=== PATIENT | male | born 1975 | race Caucasian/White ===

== ENCOUNTER 2017-12-25 09:22 | Emergency (ER) | payer MEDICAID, OTHER ==
[~2017-12-25] VITALS: Ht 188 cm; Wt 148.3 kg
[~2017-12-25 09:22] MED LIST: CEPH-572 PO
[2017-12-25] MEDS ORDERED: proparacaine 0.5% ophthalmic drops 15ml RIGHTEYE ONE (10:20)
[2017-12-25] MEDS ORDERED: benoxinate/fluorescein ophth drops 5ml bottle EACHEYE ONE (10:45)
[2017-12-25] MEDS ORDERED: HYDROcodone/acetaminophen 10/325mg tab PO ONE (11:05)
[2017-12-25] MEDS ORDERED: gentamicin ophthalmic ointment 1 APPLIC TUBE RIGHTEYE ONE (11:05)
[2017-12-25 11:24] VITALS: BP 148/97
== END 2017-12-25 11:26 | disposition home or self-care (01) ==
LOC: ER 09:22
DX: S05.01XA Injury of conjunctiva and corneal abrasion without foreign body, right eye, initial encounter (principal); G62.9 Polyneuropathy, unspecified; G89.29 Other chronic pain; F12.90 Cannabis use, unspecified, uncomplicated; F17.200 Nicotine dependence, unspecified, uncomplicated; Z88.0 Allergy status to penicillin; X58.XXXA Exposure to other specified factors, initial encounter; Y93.89 Activity, other specified; Y92.89 Other specified places as the place of occurrence of the external cause; Y99.8 Other external cause status
CPT/HCPCS: 99283

== ENCOUNTER 2020-02-02 16:58 | Emergency (ER) | payer MEDICAID ==
[~2020-02-02] VITALS: Ht 188 cm; Wt 159.0 kg
[2020-02-02] MEDS ORDERED: IBUP-1984 PO (18:15)
[2020-02-02] MEDS ORDERED: ORPH100T2 PO (18:15)
[2020-02-02] MEDS ORDERED: ketorolac tromethamine 15mg/ml inj. IM ONE (18:15)
[2020-02-02] MEDS ORDERED: orphenadrine citrate 60mg/2ml inj. IM ONE (18:15)
[2020-02-02 18:43] VITALS: BP 143/80
== END 2020-02-02 18:47 | disposition home or self-care (01) ==
LOC: ER 16:58
DX: S16.1XXA Strain of muscle, fascia and tendon at neck level, initial encounter (principal); M25.512 Pain in left shoulder; G89.29 Other chronic pain; G62.9 Polyneuropathy, unspecified; F12.90 Cannabis use, unspecified, uncomplicated; Z98.890 Other specified postprocedural states; Z88.1 Allergy status to other antibiotic agents; Z88.0 Allergy status to penicillin; Z79.899 Other long term (current) drug therapy; X58.XXXA Exposure to other specified factors, initial encounter; Y93.89 Activity, other specified; Y92.89 Other specified places as the place of occurrence of the external cause; Y99.8 Other external cause status
CPT/HCPCS: 96372; 99284; J1885; J2360

== ENCOUNTER 2020-03-10 21:15 | Emergency (ER) | payer MEDICAID ==
[~2020-03-10] VITALS: Ht 188 cm; Wt 159.1 kg
[~2020-03-10 21:15] MED LIST changes: +ORPH100T2 PO
[2020-03-10] MEDS ORDERED: aspirin 325mg tablet PO ONE (22:05)
[2020-03-10] MEDS ORDERED: LORazepam 1 MG tablet PO ONE (22:05)
[2020-03-10 22:25] LABS: BASOPHILS # (AUTO) 0.1 X10'3 (0-0.2); BASOPHILS % (AUTO) 0.8 % (0-1); EOSINOPHILS % (AUTO) 0.2 % (0-6); HEMATOCRIT 47.6 % (42.0-52.0); LYMPHOCYTES # (AUTO) 2.5 X10'3 (1.1-4.8); LYMPHOCYTES % (AUTO) 21.1 % (21-51); MEAN CORPUSCULAR HEMOGLOBIN 31.3 PG (27.0-31.0); MEAN CORPUSCULAR HGB CONC 33.6 g/dL (33.0-36.5); MEAN CORPUSCULAR VOLUME 92.9 FL (78-98); MEAN PLATELET VOLUME 9.4 FL (7.4-10.4); MONOCYTES # (AUTO) 0.7 X10'3 (0-0.9); MONOCYTES % (AUTO) 6.3 % (2-12); NEUTROPHILS # (AUTO) 8.4 X10'3 (1.8-7.7); NEUTROPHILS % (AUTO) 71.6 % (42-75); PLATELET COUNT 167 X10'3 (140-440); RED BLOOD COUNT 5.12 X10'6 (4.70-6.10); WHITE BLOOD COUNT 11.8 X10'3 (4.5-11.0)
[2020-03-10 22:30] VITALS: BP 143/82
[2020-03-10 22:37] LABS: ALANINE AMINOTRANSFERASE 40 U/L (12-78); ALBUMIN 3.8 G/DL (3.4-5.0); ALBUMIN/GLOBULIN RATIO 1.1 (1.1-1.5); ALKALINE PHOSPHATASE 61 IU/L (46-116); ANION GAP 5 (8-16); ASPARTATE AMINO TRANSFERASE 24 U/L (10-37); BILIRUBIN,TOTAL 0.4 MG/DL (0.1-1.0); BLOOD UREA NITROGEN 8 MG/DL (7-18); BUN/CREATININE RATIO 9.9 (5.4-32.0); CALCIUM 8.8 MG/DL (8.5-10.1); CHLORIDE 106 MMOL/L (99-107); CREATININE 0.81 MG/DL (0.60-1.10); GLUCOSE 96 MG/DL (70-104); LIPASE 82 U/L (73-393); POTASSIUM 3.7 MMOL/L (3.5-5.1); SODIUM 141 MMOL/L (135-145); TOTAL CARBON DIOXIDE 30.2 MMOL/L (24-32); TOTAL PROTEIN 7.2 G/DL (6.4-8.2); eGFR > 90 ML/MIN
[2020-03-10 22:43] LABS: D-DIMER < 0.19 MG/L FEU (0-0.50)
[2020-03-10] MEDS ORDERED: famotidine 20mg tablet PO ONE (22:50)
== END 2020-03-10 23:42 | disposition home or self-care (01) ==
LOC: ER 21:16
DX: R07.89 Other chest pain (principal); J45.909 Unspecified asthma, uncomplicated; G89.29 Other chronic pain; F12.90 Cannabis use, unspecified, uncomplicated; Z79.2 Long term (current) use of antibiotics; Z88.0 Allergy status to penicillin; Z79.899 Other long term (current) drug therapy
CPT/HCPCS: 36415; 71045; 80053; 83690; 84484; 85025; 85379; 93005; 99285